=== PATIENT | female | born 1995 | race Caucasian/White ===

== ENCOUNTER → 2019-06-17 | Outpatient (CLI) | payer OTHER ==
[2019-06-19 10:53] LABS: HEPATITIS C VIRUS ABY INDEX 0.2 INDEX (<0.8); HIV 1&2 SCREEN CENTAUR NEGATIVE (NEGATIVE)
== END ==
LOC: M SMT 13:55
PROVIDERS: ATTEND Advanced Practice Midwife
DX: Z34.83 Encounter for supervision of other normal pregnancy, third trimester (principal)

== ENCOUNTER → 2019-06-17 | Outpatient (REF) | payer OTHER | LOC: M LAB REF 17:08 | PROVIDERS: ATTEND Advanced Practice Midwife | DX: Z34.83 Encounter for supervision of other normal pregnancy, third trimester (principal) ==

== ENCOUNTER → 2019-07-01 | Outpatient (CLI) | payer OTHER ==
[2019-07-04 00:09] LABS: ANTI PARVO VIRUS LEVEL IGG 0.1 index (0.0-0.8); ANTI PARVO VIRUS LEVEL IgM 0.3 index (0.0-0.8)
== END ==
LOC: M SMT 14:49
PROVIDERS: ATTEND Advanced Practice Midwife
DX: Z34.83 Encounter for supervision of other normal pregnancy, third trimester (principal); Z3A.00 Weeks of gestation of pregnancy not specified

== ENCOUNTER 2019-07-10 08:23 | Inpatient (IN) | payer OTHER ==
[2019-07-10] VITALS (20 sets, daily range): BP systolic 93–161; BP diastolic 51–88
[~2019-07-10] VITALS: Ht 175.3 cm; Wt 129.0 kg
[2019-07-10] MEDS ORDERED: PRENTAB9 PO (08:32)
[2019-07-10] MEDS ORDERED: TUMS500C PO (08:39)
[2019-07-10] MEDS ORDERED: LACTATED RINGER'S 1000 ML IV STA (09:07)
--- NOTE | 2019-07-10 09:22 | HPEPDOC ---
Obstetrical History & Physical General Date of Admission Jul 10, 2019 at 08:23 History of Present Illness Chief Complaint: Induction of labor Information Provided By: Patient Age: 24 : 6 Term: 1 Pre-term: 0 Abortions: 4 Livin Care Care: Good Care (transfer to [facility] from [place] @ 34 wks ) Dating Final EDC: Jul 17, 2019 Final EDC by: LMP EGA at Admission: 39 Antepartum Course Height (inches): 69 Pre- weight (lbs.): 152 Admission Weight (lbs.): 287 Past Medical History Past Obstetrical History : Past Obstetrical History: Primgravida (2018) Type of Delivery: Spontaneous Vaginal Del. Sex of Infant: Female (7#7) Complications: No PATIENT ACCESS REGISTRAR History: Spontaneous (x4) Past Medical History Medical History depression Surgical History: Other (breast bx) Family History Significant Family History: Diabetes Social History Marital Status: Family situation: Spouse/partner home Psychosocial History: Depression * Smoker: former Smoker Alcohol: Denies Drugs: denies Imunizations Tdap status: current Allergies Coded Allergies: amoxicillin (Verified Allergy, Severe, FULL BODY RASH, 07/10/19) latex (Verified Allergy, Unknown, INTERNAL ITCHING, 07/10/19) Medications Scheduled No.137/Iron/Folic Acd ( Vitamin Tablet) 1 Each Tablet, 1 TAB PO DAILY Scheduled PRN Calcium Carbonate (Tums) 200 Mg Tab.chew, 500 MG PO Q6HP PRN for INDIGESTION Physical Examination Physical Examination GENERAL: Alert and oriented times three. BREAST: . ABDOMEN: Gravid and non-tender to touch. FETUS: Is vertex (VTX) by sterile vaginal examination (SVE), fetus is vertex (VTX) by Chet. HEART RATE: Regular rate and rhythm. LUNGS: Clear to auscultation (CTA). EXTREMITIES: No edema. No clonus. Deep tendon reflexes (DTRs) + 2. Pertinent Laboratoy Data Blood Type: O+ RBC Antibody Screen: Negative HIV: Negative Hepatitis B: Negative Hepatitis C: Negative Rapid Plasma Reagin: Nonreactive Rubella: Immune Chlamydia/Gonorrhea: Negative Group B Streptococcus: Negative Quad Screen Test: Negative Glucose Tolerance Test: 90 Anatomy Ultrasound Ultrasound Date: Mar 02, 2019 Placenta Location: Anterior Normal Anatomy: Yes Placenta Previa: No Estimated Weight (grams): 354 Other Ultrasounds 01/09/19 dating 13w4d 06/17/19 vertex Steroid Therapy Steroid Therapy: No Vaginal Examination Dilation: 2cm Effacement: 50% Station: -3 Cervical Consistency: Medium Cervical Position: Posterior Presentation: Cephalic presentation Assessment Heart Rate (FHR): 135 Variability: Moderate Decelerations: Variable Tocometer Contractions: No Frequency: irregular Assessment/Plan Assessment Carmen is a 24-year-old (G)6 para (P)1-0-4-1 at 39+0 weeks by 13-week ultrasound. Presents to Labor and Delivery (L&D) for elective social Induction of labor. Denies regular UC, LOF or bleeding. Reports good activity. Pt transferred from [place] to [facility] @ 34 wks and has received appropriate care. Plan Admit and orient per consult Dr Garay Controls Technician and consent. Diet: regular. Group B Streptococcus (GBS) negative. Labs and intravenous (IV) per unit protocol. Counseled on misoprostol, Pitocin and induction of labor (IOL). Lactated Ringers (LR): Bolus 500 mL, then saline lock Pt plans epidural Anticipate normal spontaneous delivery (). C-S as appropriate. Christaine Lala CNM Jul 10, 2019 09:22
[2019-07-10] MEDS: miSOPROStol 50 MCG 1/2 TAB (S0191) PO SCH ×2 (09:33→14:45)
[2019-07-10 09:41] LABS: HEMATOCRIT 32.8 % (36.0-47.0); HEMOGLOBIN 10.7 g/dl (12.0-15.5); MEAN CORPUSCULAR HGB CONC 32.6 g/dl (32.0-36.5); MEAN CORPUSCULAR VOLUME 85.9 fl (80.0-96.0); PLATELET COUNT, AUTOMATED 228 10^3/uL (150-450); RED BLOOD COUNT 3.82 10^6/uL (4.00-5.40); WHITE BLOOD COUNT 13.4 10^3/uL (4.0-10.0)
--- NOTE | 2019-07-10 18:54 | IPNPDOC ---
Text Note Date of Service The patient was seen on 07/10/19. NOTE Reports feeling crampy Irregular UC Cat I tracing SVE 2+/50/-2 Cooks catheter placed, inflated to 60/40 Start pitocin VS,Fishbone, I+O VS, Fishbone, I+O Laboratory Tests 07/10/19 09:17 Vital Signs Date Time Temp Pulse Resp B/P (MAP) Pulse Ox O2 Delivery O2 Flow Rate FiO2 07/10/19 17:48 98.5 83 16 112/57 (75) Christiane Lala CNM Jul 10, 2019 18:54
[2019-07-10] MEDS ORDERED: OXYTOCIN DRIP 30 UNITS in IV 1 EA IV SCH (19:00)
[2019-07-10] MEDS ORDERED: BUTORPHANOL 2 MG/ML INJ (J0595) IV ONE (19:00)
[2019-07-10] MEDS ORDERED: PROMETHAZINE INJ 25 MG/ML VIAL (J2550) IV ONE (19:00)
[2019-07-10] MEDS: LR 1,000 ML IV SCH (21:13)
[2019-07-11] VITALS (28 sets, daily range): BP systolic 103–156; BP diastolic 52–88
--- NOTE | 2019-07-11 00:34 | IPNPDOC ---
Text Note Date of Service The patient was seen on 07/11/19. NOTE Reports UC are getting more uncomfortable. Not ready for epidural yet Cat I tracing. Uc not recording at this time due to maternal activity SVE - cooks catheter sitting in vagina, removed. /-3. Continue Pitocin. Anticipate NSVB VS,Fishbone, I+O VS, Fishbone, I+O Laboratory Tests 07/10/19 09:17 Vital Signs Date Time Temp Pulse Resp B/P (MAP) Pulse Ox O2 Delivery O2 Flow Rate FiO2 07/10/19 19:37 98.0 88 18 134/80 (98) 07/10/19 19:30 Room Air Christiane Lala CNM Jul 11, 2019 00:34
[2019-07-11] MEDS ORDERED: FENTANYL 2MCG/ML ROPIVACAINE 0.2% IN 0.9% NACL 100ML IVBAG As Ordered ONE (01:25)
[2019-07-11] MEDS ORDERED: REFRIGERATOR IV KEYS XX PRN (03:00)
[2019-07-11] MEDS ORDERED: EPIDURAL/PCA KEYS XX PRN (03:00)
[2019-07-11] MEDS ORDERED: EPIDURAL COMMENT XX SCH (03:00)
[2019-07-11] MEDS ORDERED: diphenhydrAMINE INJ 50MG/ML VIAL (J1200) IV PRN (03:00)
[2019-07-11] MEDS ORDERED: ePHEDrine SULFATE 25 MG/5 ML(5MG/ML) SYRINGE IV PRN (03:00)
[2019-07-11] MEDS ORDERED: FENTANYL/ROPIVACAINE/NACL BAG 100 ML EPIDURAL SCH (03:00)
[2019-07-11] MEDS ORDERED: NALOXONE INJ 0.4 MG/1 ML VIAL (J2310) IV PRN (03:00)
[2019-07-11] MEDS ORDERED: ONDANSETRON 4MG/2ML VIAL (J2405) IV PRN (03:00)
[2019-07-11] MEDS ORDERED: LACTATED RINGER'S 1000 ML IV PRN (03:00)
[2019-07-11] MEDS: LR 1,000 ML IV SCH (05:54)
--- NOTE | 2019-07-11 07:29 | DNPDOC ---
[facility] Delivery Note Delivery Note DATE OF DELIVERY: 07/11/19 PREDELIVERY DIAGNOSIS: 39+1/7 weeks' gestation and labor. POST DELIVERY DIAGNOSIS: Delivered. PROCEDURE: Spontaneous vaginal delivery. PROVIDER: Christiane Lala CNM ANESTHESIA: Epidural. ESTIMATED BLOOD LOSS: 100 mL. FINDINGS: 7 pound 7 ounce, 3360gm female infant, Score 9/9, tight nuchal cord times 1. DELIVERY SUMMARY: Patient is a 24-year-old 6 now para 2-0-4-2 who was admitted to labor and delivery for elective induction of labor. She received misoprostol, cooks catheter, pitocin and labor did ensue. She utilized an epidural for labor coping. SROM clear fluid 0616. FD 0646. Viable female child delivered via somersault maneuver through tight nuchal cord @ 0659. Spontaneous respirations, transitioned on maternal abdomen. Cord doubly clamped and cut by FOB under my direction once pulsations ceased. Apgars 9/9. Placenta sanchez, intact with 3v cord @ 0706. Fundus firmed with massage and IV pitocin bolus. EBL 100ml. Perineum, cervix and vagina intact. Sponge, sharp and instrument count correct. Christiane Lala CNM Jul 11, 2019 07:29
[2019-07-11] MEDS ORDERED: METHYLERGONOVINE MALEATE 0.2 MG TAB PO PRN (07:30)
[2019-07-11] MEDS ORDERED: MEASLES,MUMPS,RUBELLA VACCINE INJ (MMR-II) (90707) SC SCH (07:30)
[2019-07-11] MEDS ORDERED: IBUPROFEN 800 MG TAB PO PRN (07:30)
[2019-07-11] MEDS ORDERED: DIBUCAINE 1% OINTMENT 30GM TOP PRN (07:30)
[2019-07-11] MEDS ORDERED: ACETAMINOPHEN TAB 650MG DOSE (2X325MG) PO PRN (07:30)
[2019-07-11] MEDS ORDERED: ACETAMINOPHEN 500 MG TAB PO PRN (07:30)
[2019-07-11] MEDS ORDERED: MOM 30ML SUSPENSION UDC PO PRN (07:30)
[2019-07-11] MEDS ORDERED: DOCUSATE SODIUM 100 MG CAP PO PRN (07:30)
[2019-07-11] MEDS ORDERED: RHOGAM 300 MCG (1500 IU) INJ (J2790) IM SCH (07:30)
[2019-07-11] MEDS ORDERED: IBUPROFEN 600 MG TAB PO PRN (07:30)
[2019-07-11] MEDS: PRENATAL VITAMINS CHEWABLE TABLET PO SCH (09:00)
[2019-07-12 06:00] VITALS: BP 91/54
[2019-07-12] MEDS: PRENATAL VITAMINS CHEWABLE TABLET PO SCH (09:44)
== END 2019-07-12 13:15 | disposition home or self-care (01) | DRG 807 ==
LOC: M LDI 08:23 → M OBS 07-11 09:31
PROVIDERS: ADMIT Advanced Practice Midwife; ATTEND Advanced Practice Midwife
PROC: 3E033VJ Introduction of Other Hormone into Peripheral Vein, Percutaneous Approach (ICD-10-PCS; 2019-07-10)
PROC: 3E0DXGC Introduction of Other Therapeutic Substance into Mouth and Pharynx, External Approach (ICD-10-PCS; 2019-07-10)
PROC: 10E0XZZ Delivery of Products of Conception, External Approach (ICD-10-PCS; principal; 2019-07-11)
DX: O69.89X0 Labor and delivery complicated by other cord complications, not applicable or unspecified (principal); Z37.0 Single live birth; Z3A.39 39 weeks gestation of pregnancy

== ENCOUNTER → 2020-07-14 | Outpatient (REF) | payer OTHER ==
[~2020-07-14] MED LIST: PRENTAB9 PO; TUMS500C PO
[2020-07-14 17:14] LABS: BASO % 0.3 % (0.0-1.0); EOS # 0.1 10^3/uL (0.0-0.5); EOS % 1.1 % (0.0-3.0); HEMOGLOBIN 13.2 g/dl (12.0-15.5); LYMPH # 2.8 10^3/uL (1.5-5.0); LYMPH % 28.7 % (24.0-44.0); MEAN CORPUSCULAR HEMOGLOBIN 27.9 pg (27.0-33.0); MEAN CORPUSCULAR HGB CONC 31.4 g/dl (32.0-36.5); MEAN CORPUSCULAR VOLUME 88.8 fl (80.0-96.0); MONO # 0.7 10^3/uL (0.0-0.8); MONO % 6.8 % (0.0-5.0); NEUTROPHILS # 6.2 10^3/uL (1.5-8.5); NEUTROPHILS % 62.9 % (36.0-66.0); PLATELET COUNT, AUTOMATED 321 10^3/uL (150-450); RED BLOOD COUNT 4.73 10^6/uL (4.00-5.40); WHITE BLOOD COUNT 9.8 10^3/uL (4.0-10.0)
[2020-07-14 17:36] LABS: ALBUMIN 3.5 GM/DL (3.2-5.2); ALT/SGPT 17 U/L (12-78); BILIRUBIN,TOTAL 0.4 MG/DL (0.2-1.0); BLOOD UREA NITROGEN 9 MG/DL (7-18); CARBON DIOXIDE LEVEL 29 MEQ/L (21-32); CHLORIDE LEVEL 107 MEQ/L (98-107); GLOMERULAR FILTRATION RATE > 60.0 (>60); GLUCOSE, FASTING 86 MG/DL (70-100); POTASSIUM SERUM 4.4 MEQ/L (3.5-5.1); SODIUM LEVEL 139 MEQ/L (136-145)
== END ==
LOC: M LAB REF 16:26
PROVIDERS: ATTEND Physician Assistant
DX: R53.83 Other fatigue (principal)

== ENCOUNTER → 2021-05-26 | Outpatient (CLI) | payer OTHER | LOC: M WHC 13:41 | PROVIDERS: ATTEND Physician Assistant | DX: N60.21 Fibroadenosis of right breast (principal) ==

== ENCOUNTER → 2021-10-18 | Outpatient (CLI) | payer OTHER | LOC: M WHC 14:07 | PROVIDERS: ATTEND Physician Assistant | DX: D24.1 Benign neoplasm of right breast (principal) ==

== ENCOUNTER 2022-11-12 12:54 | Emergency (ER) | payer OTHER ==
[~2022-11-12] VITALS: Ht 170.2 cm; Wt 117.0 kg
[2022-11-12 12:55] VITALS: BP 118/53
[2022-11-12 13:38] LABS: BASO % 0.2 % (0.0-1.0); EOS # 0.1 10^3/uL (0.0-0.5); EOS % 0.6 % (0.0-3.0); HEMATOCRIT 39.3 % (36.0-47.0); HEMOGLOBIN 13.2 g/dl (12.0-15.5); LYMPH # 2.2 10^3/uL (1.5-5.0); LYMPH % 20.8 % (24.0-44.0); MEAN CORPUSCULAR HEMOGLOBIN 29.1 pg (27.0-33.0); MEAN CORPUSCULAR HGB CONC 33.6 g/dl (32.0-36.5); MEAN CORPUSCULAR VOLUME 86.8 fl (80.0-96.0); MONO # 0.6 10^3/uL (0.0-0.8); MONO % 5.9 % (2.0-8.0); NEUTROPHILS # 7.5 10^3/uL (1.5-8.5); PLATELET COUNT, AUTOMATED 301 10^3/uL (150-450); RED BLOOD COUNT 4.53 10^6/uL (4.00-5.40); WHITE BLOOD COUNT 10.4 10^3/uL (4.0-10.0)
[2022-11-12 14:07] LABS: LIPASE 25 U/L (12-53)
[2022-11-12 14:12] LABS: ALBUMIN 3.7 G/DL (3.2-5.2); ALKALINE PHOSPHATASE 61 U/L (46-116); ALT/SGPT 17 U/L (7.0-40); AST/SGOT 14 U/L (<34); BILIRUBIN,DIRECT 0.3 MG/DL (<0.4); BILIRUBIN,TOTAL 0.9 MG/DL (0.3-1.2); BLOOD UREA NITROGEN 5 MG/DL (9-23); CALCIUM LEVEL 8.6 MG/DL (8.5-10.1); CARBON DIOXIDE LEVEL 27 MMOL/L (20-31); CHLORIDE LEVEL 104 MMOL/L (98-107); CREATININE FOR GFR 0.67 MG/DL (0.55-1.30); GLOMERULAR FILTRATION RATE > 60.0 (>60); GLUCOSE, FASTING 88 MG/DL (60-100); POTASSIUM SERUM 4.2 MMOL/L (3.5-5.1); SODIUM LEVEL 137 MMOL/L (136-145); TOTAL PROTEIN 6.3 G/DL (5.7-8.2)
[2022-11-12 14:15] LABS: HCG, SERUM QUALITATIVE POSITIVE (NEGATIVE)
== END 2022-11-12 13:31 | disposition left against medical advice (07) ==
LOC: M ED 12:54
DX: Z53.21 Procedure and treatment not carried out due to patient leaving prior to being seen by health care provider (principal)

== ENCOUNTER 2022-11-12 15:28 | Emergency (ER) | payer OTHER ==
[~2022-11-12] VITALS: Ht 170.2 cm; Wt 116.0 kg
[2022-11-12 20:07] VITALS: BP 123/77
== END 2022-11-12 20:08 | disposition home or self-care (01) ==
LOC: M ED 15:28
DX: O20.8 Other hemorrhage in early pregnancy (principal); O26.891 Other specified pregnancy related conditions, first trimester; R10.2 Pelvic and perineal pain; Z88.1 Allergy status to other antibiotic agents; Z91.040 Latex allergy status; Z3A.01 Less than 8 weeks gestation of pregnancy

== ENCOUNTER → 2023-04-11 | Outpatient (REF) | payer OTHER ==
[2023-04-11 18:59] LABS: BASO % 0.5 % (0.0-1.0); EOS # 0.1 10^3/uL (0.0-0.5); EOS % 1.7 % (0.0-3.0); HEMATOCRIT 40.1 % (36.0-47.0); HEMOGLOBIN 12.6 g/dl (12.0-15.5); LYMPH # 1.7 10^3/uL (1.5-5.0); LYMPH % 25.9 % (24.0-44.0); MEAN CORPUSCULAR HGB CONC 31.4 g/dl (32.0-36.5); MEAN CORPUSCULAR VOLUME 89.1 fl (80.0-96.0); MONO # 0.5 10^3/uL (0.0-0.8); MONO % 7.2 % (2.0-8.0); NEUTROPHILS # 4.3 10^3/uL (1.5-8.5); NEUTROPHILS % 64.4 % (36.0-66.0); PLATELET COUNT, AUTOMATED 296 10^3/uL (150-450); WHITE BLOOD COUNT 6.6 10^3/uL (4.0-10.0)
[2023-04-11 19:22] LABS: ALBUMIN 3.9 G/DL (3.2-5.2); ALKALINE PHOSPHATASE 75 U/L (46-116); ALT/SGPT 20 U/L (7.0-40); AST/SGOT 11 U/L (<34); BILIRUBIN,TOTAL 0.8 MG/DL (0.3-1.2); BLOOD UREA NITROGEN 10 MG/DL (9-23); CALCIUM LEVEL 9.2 MG/DL (8.5-10.1); CARBON DIOXIDE LEVEL 26 MMOL/L (20-31); CHLORIDE LEVEL 105 MMOL/L (98-107); CHOLESTEROL LEVEL 162 MG/DL (<200); CREATININE FOR GFR 0.74 MG/DL (0.55-1.30); GLOMERULAR FILTRATION RATE > 60.0 (>60); GLUCOSE, FASTING 88 MG/DL (60-100); HDL CHOLESTEROL 62.3 MG/DL (>40); LDL CHOLESTEROL 89.5 MG/DL (<100); NON-HDL-C 99.7 MG/DL; POTASSIUM SERUM 4.8 MMOL/L (3.5-5.1); SODIUM LEVEL 139 MMOL/L (136-145); THYROID STIMULATING HORMONE 1.315 uIU/ML (0.55-4.78); TOTAL 25(OH) VITAMIN D 28.3 NG/ML (20.0-100.0); TOTAL PROTEIN 6.6 G/DL (5.7-8.2); TRIGLYCERIDES LEVEL 51 MG/DL (<150)
== END ==
LOC: M LAB REF 16:26
PROVIDERS: ATTEND Nurse Practitioner Family
DX: Z13.228 Encounter for screening for other metabolic disorders (principal)

== ENCOUNTER 2023-04-26 11:29 | Day surgery (SDC) | payer OTHER ==
[~2023-04-26] VITALS: Ht 172.7 cm; Wt 107.2 kg
[~2023-04-26 11:29] MED LIST changes: +NS 1,000 ML IV ONE; +PEPC1TAB5 PO; +SERT25TA21 PO
[2023-04-26] MEDS ORDERED: fentaNYL 100 MCG/2 ML INJECTION As Ordered ONE (14:00)
[2023-04-26] MEDS ORDERED: propofoL 200 MG/20 ML VIAL As Ordered ONE (14:00)
[2023-04-26] MEDS ORDERED: ONDANSETRON 4MG 2ML VIAL As Ordered ONE (14:00)
[2023-04-26] MEDS ORDERED: LIDOCAINE 2% 100MG/5ML SDV (FOR ANES.) As Ordered ONE (14:00)
[2023-04-26 14:09] VITALS: TEMP 97.4
[2023-04-26 14:44] VITALS: BP 109/57; O2SAT 99
== END 2023-04-26 14:47 | disposition home or self-care (01) ==
LOC: M OPP 11:29
PROVIDERS: ATTEND Internal Medicine Gastroenterology
DX: K31.89 Other diseases of stomach and duodenum (principal); K21.00 Gastro-esophageal reflux disease with esophagitis, without bleeding; K29.70 Gastritis, unspecified, without bleeding; F17.290 Nicotine dependence, other tobacco product, uncomplicated; Z79.899 Other long term (current) drug therapy; Z88.1 Allergy status to other antibiotic agents; Z91.040 Latex allergy status
CPT/HCPCS: 43239; 88305; J2405; J3010